=== PATIENT | female | born 1955 | race Caucasian/White ===

== ENCOUNTER 2018-02-08 00:21 | Emergency (ER) | payer MEDICARE, OTHER ==
[~2018-02-08] VITALS: Ht 165.1 cm; Wt 56.7 kg
[2018-02-08 00:36] VITALS: BP 157/95
[2018-02-08] MEDS ORDERED: clonazePAM 0.5 MG TAB PO ONE (00:45)
== END 2018-02-08 01:04 | disposition home or self-care (01) ==
LOC: ER 00:23
DX: F41.9 Anxiety disorder, unspecified (principal); F17.210 Nicotine dependence, cigarettes, uncomplicated; Z95.0 Presence of cardiac pacemaker

== ENCOUNTER 2018-02-09 18:38 | Emergency (ER) | payer MEDICARE, OTHER ==
[~2018-02-09] VITALS: Ht 152.4 cm; Wt 56.7 kg
[2018-02-09 18:55] VITALS: BP 147/85
[2018-02-09] MEDS ORDERED: clonazePAM 0.5 MG TAB PO ONE (23:00)
== END 2018-02-09 23:34 | disposition home or self-care (01) ==
LOC: ER 18:38
DX: I10 Essential (primary) hypertension (principal); F17.210 Nicotine dependence, cigarettes, uncomplicated; Z76.0 Encounter for issue of repeat prescription; Z95.0 Presence of cardiac pacemaker